=== PATIENT | female | born 1970 | race African-American/Black ===

== ENCOUNTER 2017-08-25 06:22 | Day surgery (SDC) | payer OTHER ==
[~2017-08-25] VITALS: Ht 177.8 cm; Wt 114.3 kg
[~2017-08-25 06:22] MED LIST: AMLODIPINE BESY10 MG PO; DIOVAN HCT160 MG/25 PO; FLUOXETINE HCL40 MG PO; ZOFRAN ODT4 MG OR
[2017-08-25 09:55] VITALS: BP 128/95
== END 2017-08-25 10:15 | disposition home or self-care (01) | DRG 607 ==
LOC: ORM 06:22
PROVIDERS: ATTEND Surgery
PROC: 0HB7XZZ Excision of Abdomen Skin, External Approach (ICD-10-PCS; principal; 2017-08-25)
PROC: 0HB1XZZ Excision of Face Skin, External Approach (ICD-10-PCS; 2017-08-25)
DX: L91.0 Hypertrophic scar (principal); I10 Essential (primary) hypertension